=== PATIENT | male | born 2000 | race Caucasian/White ===

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

== ENCOUNTER 2019-12-01 10:38 | Outpatient (CLI) | payer MEDICAID, SELFPAY ==
[2019-12-02 13:56] LABS: COVID-19 RT-PCR Result Positive (Negative)
== END 2019-12-01 10:58 ==
PROVIDERS: PCP Student in an Organized Health Care Education/Training Program; Visit Provider Student in an Organized Health Care Education/Training Program
DX: R05 Cough (principal); Z20.828 Contact with and (suspected) exposure to other viral communicable diseases
CPT/HCPCS: U0003